=== PATIENT | male | born 1975 | race Caucasian/White ===

== ENCOUNTER 2016-08-28 09:37 | Inpatient (IN) | payer OTHER ==
[~2016-08-28] VITALS: Ht 172.7 cm; Wt 81.0 kg
--- NOTE | ~2016-08-28 | INDIVTXPLN ---
"PATIENT: DENYS VEGA W | | [facility] UNIT #: [id number] | [address] AGE/SEX: 41 M : 75 | [address] | [place] [address] ADMIT/REG DATE: 08/28/16 | ROOM: [facility] LOC: ADTC | ADTC | Individualized Treatment Plan Date: 04 SEPTEMBER 2016 Problem Statement/Issue Identified: DENYS RELAPSED THREE MONTHS AFTER HIS LAST TREATMENT EXPERIENCE (DISCHARGE JANUARY 2016). DENYS NEEDS TO BE WILLING TO FOLLOWTHROUGH WITH AFTERCARE RECOMMENDATIONS, SNF HOUSE, SPONSORSHIP AND 12 STEP MEETINGS/FELLOWSHIP. Goal: DENYS WILL BECOME WILLING TO BE MORE ACTIVE IN THE COMMUNITY,WILL OBTAIN A SPONSOR AND BE WILLING TO USE HIM ON A REGULAR BASIS. Objectives/Activities to achieve goal: 1. Denys will be willing to sign RELEASE to [employer] [facility] [employer] in [place]. Due Date: Complete: IncompleteL 2. Denys will complete GETTING STARTED packet identifying his thoughts and feelings about being back in treatment, a brief life history, & will identify personality characteristics when using vs. when clean. Denys will process his work and any insights gained with his primary counselor and selected pages in group. Due Date: Complete: Incomplete: 3. Denys will complete an honest and through STEP ONE identifying specific high risk behaviors, efforts to quit or control his use and 15 values he has compromised in his addiction. He will process his work and any insights gained with his primary counselor. Due Date: Complete: Incomplete: 4. Denys will attend all available 12-STEP MEETINGS available while he is in treatment. He will be willing to talk with and process some of the topics addressed with his primary counselor without compromising anyone's annominity . Due Date: Complete: Incomplete: 5. Denys will develop a list of characteristics that he will want to find in a temporary sponsor. Denys will ask a man with at least four years of clean time to be his temporary sponsor by the end of his second week of treatment. Due Date: Complete: Incomplete: 4. Denys will agree to lead 12 step meetings on the Unit and will discuss the topic chosen with his primary counsleor the next day. Due Date: Complete: Incomplete: Client signature Date Counselor signature Date PATIENT: DENYS VEGA W | | [facility] UNIT #: [id number] | [address] AGE/SEX: 41 M : 75 | [address] | [place] [address] ADMIT/REG DATE: 08/28/16 | ROOM: [facility] LOC: [facility] | ADTC | Individualized Treatment Plan Outcome/Measurement of Progress Towards Goal: Counselor's signature Date "
--- NOTE | ~2016-08-28 | CLPRLASSUM ---
"PATIENT: DENYS VEGA W | | [facility] UNIT #: [id number] | [address] AGE/SEX: 41 M : 75 | [address] | [place] [address] ADMIT/REG DATE: 08/28/16 | ROOM: [facility] LOC: ADTC | ADTC | Client Problem List/Assessment Summary Date: 04 SEPTEMBER 2016 Problems identified by the client: PRIMARY SUPPORT GROUP, SOCIAL, OCCUPATIONAL, HOUSING, FINANCIAL, LEGAL Problems identified by significant others: SAME ABOVE Client's Strengths as Identified by Client: FAMILY, FRIENDS (NON-USERS) Problem List: Kalee MCFARLANE RELAPSED SHORTLY AFTER HIS LAST TREATMENT EXPERIENCE. DENYS NEEDS TO MAKE A NON-CONDITIONAL COMMITTMENT TO FOLLOWTHROUGH WITH AFTERCARE RECOMMENDATIONS, LONG TERM HOUSE, AA/NA MEETINGS AND USING A SPONSOR. Kalee MCFARLANE HAS A HISTORY OF SUBSTANCE ABUSE THAT HAS NOW RESULTED IN [place] DRUG CHARGES AND DRUG COURT. HE NEEDS TO MAKE SIGNIFICANT CHANGES IN HIS LIFE AND GAIN AWARENESS OF POTENTIAL TRIGGERS THAT WOULD RESULT IN ANOTHER RELAPSE. Kalee MCFARLANE PROFESSES A BELIEF IN GOD BUT HAS TURNED TO DRUGS TO COPE WITH LIFE STRESSORS/DISAPPOINTMENTS. Kalee MCFARLANE EXPRESSES ASHAMED FEELINGS FOR THE WORRY HE HAS CAUSED HIS FAMILY MEMBERS BY HIS CHEMICAL USE. Code Levy: T: to be addressed during course of treatment O: problem noted, expected to resolve itself with abstinence--specific tx plan not required R: problem noted, will be referred upon discharge PRIMARY COUNSELOR: KRISTOPHER STOVALL [facility]"
--- NOTE | ~2016-08-28 | RESCARESUM ---
"PATIENT: DENYS VEGA | | [facility] UNIT #: [id number] | [address] AGE/SEX: 41 M : 75 | [address] | [place] [address] ADMIT/REG DATE: 08/28/16 | ROOM: [facility] LOC: ADTC | ADTC | Summary of Residential Care Primary Counselor: Kristopher Stovall LM,[facility] Date of Admission: 28 AUGUST 2016 Date of Discharge: 25 SEPTEMBER 2016 [address]: 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 Continued Obstacles to Sobriety/Relapse Issues: FAMILY ENABLERS, OLD USING FRIENDS/PLACES, STUFFING FEELINGS, PEOPLE PLEASING, FAILURE TO FOLLOW THROUGH WITH AFTERCARE RECOMMENDATIONS, NA MEETINGS/FELLOWSHIP AND WORKING WITH A SPONSOR. Family Issues Addressed: FAMILY DID ATTEND FAMILY SESSIONS; THEY ARE SUPPORTIVE BUT HAVE ENABLED IN THE PAST Y Individual Therapy Y Group Therapy Y Educational Series on Substance Abuse Y Parents/Significant Others Attended Family Program N Acute Medical Problems During the Course of Treatment N Transferred to Hospital During the Course of Treatment Y Accepting of Substance Abuse Problem Completed AA Step # 1 During This Level of Care Significant Incidences During Treatment: NONE Reason For Discharge: Y Completed Residential [place] Goals and Ready For Next Level of Care Continuing Care Plan/Recommendations: Y Sponsor Y AA Meetings/NA Meetings Y 1/[address] House MINIMUM OF 6 MONTHS PATIENT: DENYS VEGA | | [facility] UNIT #: [id number] | [address] AGE/SEX: 41 M : 75 | [address] | [place] [address] ADMIT/REG DATE: 08/28/16 | ROOM: [facility] LOC: ADTC | ADTC | Summary of Residential Care Specific Continuing Care Plan: CLIENT WILL RETURN TO [facility] TODAY AND WILL ENTER THE [facility] IN [place] BY 2 PM TOMORROW 09/26/2016. IT IS RECOMMENDED THAT HE RESIDES AT THE [facility] FOR A MINIMUM OF SIX MONTHS OR UNTIL DISCHARGED WITH STAFF APPROVAL. CLIENT WILL RECEIVE ONGOING TREATMENT BY THE STAFF AT THE [facility] IT IS FURTHER RECOMMENDED THAT CLIENT ATTEND A MINIMUM OF THREE NA/AA MEETINGS EACH WEEK AND HAS FACE TO FACE INTERACTION WITH HIS SPONSOR AT LEAST WEEKLY. CLIENT NEEDS TO FOLLOW ANY AND ALL AFTERCARE RECOMMENDATIONS FROM THE [facility] STAFF. PRIMARY COUNSELOR: KRISTOPHER STOVALL [facility]"
--- NOTE | ~2016-08-28 | INDIVTXPLN ---
"PATIENT: DENYS VEGA W | | [facility] UNIT #: [id number] | [address] AGE/SEX: 41 M : 75 | [address] | [place] [address] ADMIT/REG DATE: 08/28/16 | ROOM: [facility] LOC: ADTC | ADTC | Individualized Treatment Plan Date: 15 SEPTEMBER 2016 Problem Statement/Issue Identified: DENYS PROFESSES A BELIEF IN GOD BUT HAS TURNED TO ALCOHOL/DRUGS TO COPE WITH DISAPPOINTMENTS AND LIFE STRESSORS. Goal: DENYS WILL WORK ON BUILDING A STRONGER RELATIONSHIP WITH HIS HIGHER POWER BY ATTENDING ALL SPIRITUAL EDUCATION & SERVICES. Objectives/Activities to achieve goal: 1. Denys will complete the SPIRITUAL ASSESSMENT will process his work and any insights gained with his primary counselor. Due Date: Complete: Incomplete: 2. Denys will read and process LETTING GO OF THE NEED TO CONTROL highlighting thinking and behaviors from the examples provided in the text and that parallel his own thiknking and behavior patterns. He will process his work with his primary counselor. Due Date: Complete: Incomplete: Client signature Date Counselor signature Date Outcome/Measurement of Progress Towards Goal: Counselor's signature Date "
--- NOTE | ~2016-08-28 | INDIVTXPLN ---
"PATIENT: DNEYS VEGA W | | [facility] UNIT #: [id number] | [address] AGE/SEX: 41 M : 75 | [address] | [place] [address] ADMIT/REG DATE: 08/28/16 | [facility] | Individualized Treatment Plan Date: 15 SEPTEMBER 2016 Problem Statement/Issue Identified: DENYS IS ASHAMED FOR THE WORRY AND DISAPPOINTMENT HE HAS CAUSED HIS FAMILY MEMBERS DUE TO HIS CHEMICAL ABUSE. Goal: DENYS WILL IDENTIFY AND PROCESS THESE FEELINGS TO PROMORTE HEALING. Objectives/Activities to achieve goal: 1. Denys will write and process FEELINGS LETTERS to his mother and his sister. Due Date: Complete: Incomplete: Client signature Date Counselor signature Date Outcome/Measurement of Progress Towards Goal: Counselor's signature Date "
--- NOTE | ~2016-08-28 | INDIVTXPLN ---
"PATIENT: DENYS VEGA W | | [facility] UNIT #: [id number] | [address] AGE/SEX: 41 M : 75 | [address] | [place] [address] ADMIT/REG DATE: 08/28/16 | ROOM: [facility] LOC: ADTC | ADTC | Individualized Treatment Plan Date: 15 SEPTEMBER 2016 Problem Statement/Issue Identified: DENYS HAS A HISTORY OF SUBSTANCE ABU SE THAT HAS NOW RESULTED IN [place] DR MELVI CHARGES AND DRUG COURT. HE NEEDS TO MAKE SIGNIFICANT CHANGES IN HIS LIFE, BE WILLING TO FOLLOWTHROUGH WITH AFTERCARE RECOMMENDATIONS, AA/NA FELLOWSHIP/SPONSORSHIP, AND BECOME AWARE OF POTENTIAL RELAPSE TRIGGERS. Goal: DENYS WILL BECOME AWARE OF POTENTIAL RELAPSE TRIGGERS/ISSUES AND DEVELOP A PLAN TO DEAL WITH THEM EFFECTIVELY THEY ARISE. Objectives/Activities to achieve goal: 1. Denys will complete MY CHANGE PLAN identifying changes in people, places and things that he is willing to change to inprove the odds of correction sobriety. He will process his work with his primary counselor and select pages with his peer group. Due Date: Complete: Incomplete: 2. Denys will complete RELAPSE PREVENTION packet identifying previous downward spirial that led to relapse and identify any new potential triggers/issues that could trip him up again. He will discuss these with his primary counselor and be open to feedback. Due Date: Complete: Incomplete: Client signature Date Counselor signature Date Outcome/Measurement of Progress Towards Goal: Counselor's signature Date "
--- NOTE | ~2016-08-28 | TXPLANREV ---
"PATIENT: DENYS VEGA | | [facility] UNIT #: [id number] | [address] AGE/SEX: 41 M : 75 | [address] | [place] [address] ADMIT/REG DATE: 08/28/16 | ROOM: [facility] LOC: ADTC | ADTC | Treatment Plan/Staffing Review Date: 18 SEPTEMBER 2016 Treatment plan was reviewed and determined appropriate as written: Treatment plan was reviewed and the following changes/additions/deletions are necessary: Discharge plans were reviewed and determined appropriate as previously documented: Discharge plans were reviewed and determined to be as follows: Other pertinent issues discussed du ring this staffing review include: Staff Present: PRIMARY COUNSELOR: Client Signature: Counselor Signature Date Time "
--- NOTE | ~2016-08-28 | TXPLANREV ---
"PATIENT: DENYS VEGA | | [facility] UNIT #: [id number] | [address] AGE/SEX: 41 M : 75 | [address] | [place] [address] ADMIT/REG DATE: 08/28/16 | ROOM: [facility] LOC: ADTC | ADTC | Treatment Plan/Staffing Review Date: 18 SEPTEMBER 2016 Treatment plan was reviewed and determined appropriate as written: YES, TREATMENT PLAN IS APPROPRIATE WRITTEN. Treatment plan was reviewed and the following changes/addition/deletions are necessary: ADDITIONAL TX PLAN WRITTEN TO ADDRESS FEELINGS. Discharge plans were reviewed and determined appropriate as previously documented: DISCHARGE PLANS ARE APPROPRIATE PREVIOUSLY DOCUMENTED. Discharge plans were reviewed and determined to be as follows: TENTATIVE DISCHARGE DATE IS 25 SEPTEMBER 2016. CLIENT HAS BEEN ACCEPTED AT THE [facility] IN [place]. Other pertinent issues discussed during this staffing review include: CLIENT HAS MADE GOOD PROGRESS ON HIS TREATMENT PLAN OBJECTIVES. HIS MOTHER PARTICIPATED IN ALL ASPECTS OF FAMILY EDUCATION AND IS SUPPORTIVE. CLIENT HAS BEEN COMPLIANT WITH UNIT GUIDELINES AND SERVES A GOOD ROLE MODEL. CLIENT DOES STRUGGLE WITH IDENTIFYING AND ALLOWING HIMSELF TO FEEL HIS FEELINGS. HE HAS BEEN ASSIGNED WORK TO ADDRESS THIS ISSUE. Staff Present: MARLENY HUGGINS PRIMARY COUNSELOR: KRISTOPHER STOVALL [facility] Client Signature Counselor Signature Date Time "
--- NOTE | ~2016-08-28 | TXPLANREV ---
"PATIENT: DENYS VEGA | | [facility] UNIT #: [id number] | [address] AGE/SEX: 41 M : 75 | [address] | [place] [address] ADMIT/REG DATE: 08/28/16 | ROOM: [facility] LOC: ADTC | ADTC | Treatment Plan/Staffing Review Date: 11 SEPTEMBER 2016 Treatment plan was reviewed and determined appropriate as written: TREATMENT PLAN IS APPROPRIATE WRITTEN. Treatment plan was reviewed and the following changes/addition/deletions are necessary: ADDITIONAL TX PLANS WERE CREATED TO ADDRESS FEELINGS LETTERS & SPIRITUALITY. Discharge plans were reviewed and determined appropriate as previously documented: NO DISCHARGE PLANS WERE DOCUMENTED PREVIOUSLY. Discharge plans were reviewed and determined to be as follows: CLIENT HAS BEEN ACCEPTED AT THE [facility] IN [place]. HIS TENTATIVE DISCHARGE DATE IS 08/28/16. Other pertinent issues discussed during this staffing review include: CLIENT CONTINUES TO VERBALIZE COMMITMENT TO HIS RECOVERY. HIS MOTHER HAS ATTENDED THE FAMILY EDUCATION AND FAMILY GROUP. SHE WILL RETURN 09/15 WHEN SHE AND CLIENT WILL PROCESS FEELINGS LETTERS. CLIENT IS WORKING ON STEP ONE AND CHARLES THINKIN. Staff Present: ROSENDO HAND PRIMARY COUNSELOR: KRISTOPHER STOVALL [facility] Client Signature Counselor Signature Date Time "
--- NOTE | 2016-08-28 11:30 | NUR ---
Group 1.5hr/ 11:1 Clients all were attentive as peers shared GS packets and some shared how they relate. This client did give feedback and relate.
--- NOTE | 2016-08-28 15:39 | NUR ---
ADMISSION NOTE Client is a 41 y/o single male referred to treatment by the court and brought here today by his mother from alf, where he had been for 55 days. Client states NKMA and brings no medications with him today. 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 Client resides in [place] with his mother and anticipates that she will come to family group. Client was searched, no contraband found. Rights/Responsibilities: Copy given and explained to client. Signed and accepted by client. Client oriented to physical lay out of the ADTC unit, given Big Book and admission packet. A Fernandez was assigned. Vel
--- NOTE | 2016-08-28 16:37 | NUR ---
Education: 1hr Participated in Step 2 work group. Very involved in the group discussion.
--- NOTE | 2016-08-28 16:38 | NUR ---
Education: 1hr Participated in Step 2 work group. Very involved in the group discussion.
--- NOTE | 2016-08-28 17:06 | NUR ---
INDIVIDUAL SESSION 1 HR: Met with client and ORIENTED HIM TO TREATMENT GUIDELINES, GOALS AND OBJECTIVES. Client explained that he is in Drug Court since treatment last year at [facility]. Client said he was clean and sober 90 days then relapsed. Meth is DOC. Client's mother will participate. Client said he needs to go to a [facility] and I agreed with him. Client is to work on GETTING STARTED pkt and was given CHARLES THINKIN. He signed INITIAL TREATMENT PLAN. sESSION 09/01
--- NOTE | 2016-08-28 17:08 | NUR ---
FAMILY CONTACT: Mom will be involved in client's treatment. Encouraged her to wait another week to attend.
--- NOTE | 2016-08-28 23:04 | NUR ---
Tech Note: Client participated in rec and attended A.A.Meeting.
--- NOTE | 2016-08-28 23:21 | NUR ---
Education Note: Client watched the healthy families video which lasted an hour.
--- NOTE | 2016-08-29 04:40 | NUR ---
Bed note: Client was in bed with eyes closed and no distress at all bed checks
--- NOTE | 2016-08-29 11:30 | NUR ---
Group 1.5hr/ 11:1 Clients all were attentive as peers shared GS packets and some shared how they relate. This client did get oriented to group rules and did share some about himself.
--- NOTE | 2016-08-29 14:39 | NUR ---
PEER REVIEWS 1 HR: Clt participated in peer review process and was able to give open and honest feedback to those receiving a review.
--- NOTE | 2016-08-29 14:50 | NUR ---
PEER REVIEWS 1 HR: Clt participated in peer review process and was able to give open and honest feedback to those receiving a review.
--- NOTE | 2016-08-29 16:25 | NUR ---
Tech Note: Client watched a video "How to Sabotage Your Treatment" and is working on Getting Started and Derrek Donald.
--- NOTE | 2016-08-29 23:47 | NUR ---
TECH NOTE: Client participated in guideline reading, watched tv/movies. SE: group
--- NOTE | 2016-08-30 04:47 | NUR ---
BED NOTE: Client was in bed, motionless with eyes closed all three bed checks.
--- NOTE | 2016-08-30 12:18 | NUR ---
PEER REVIEWS 1 HR: Clt participated in peer review process and was able to give open and honest feedback to those receiving a review.
--- NOTE | 2016-08-30 16:16 | NUR ---
Tech Note: Client went to AA mtg at [facility] and [facility]. Is working on Getting Started and Derrek Thinkin.
--- NOTE | 2016-08-30 20:03 | NUR ---
TECH NOTE: Client played Catch Phrase for REC, attended off site AA meeting, watched TV/movies. SE: all day
--- NOTE | 2016-08-31 04:48 | NUR ---
Bed Note: Clt lay motionless in bed with eyes closed showing no distress at all bed checks.
--- NOTE | 2016-08-31 15:58 | NUR ---
Tech Note: Client participated in Big Book Study. Client stated that he is working on, "How to Get Started in Treatment."
--- NOTE | 2016-08-31 22:52 | NUR ---
TECH NOTE: Client attended AA panel, participated in community clean and watched tv/movies. SE: aa panel
--- NOTE | 2016-09-01 04:24 | NUR ---
Bed Note: Clt lay motionless in bed with eyes closed showing no distress at all bed checks.
--- NOTE | 2016-09-01 10:16 | NUR ---
Tech notes: Client is working on BB
--- NOTE | 2016-09-01 11:30 | NUR ---
Morning Group, 07/16 ratio, 1.0 hours, Client attended and actively participated in group therapy. Client listened to others who shared.
--- NOTE | 2016-09-01 12:42 | NUR ---
Education Note: Client attended educational speaker Kit on Crossadd[employer].
--- NOTE | 2016-09-01 14:28 | NUR ---
FAMILY CONTACT: Able to reach client's mom. She will be here 09/04 for a FAMILY SESSION & FAMILY EDUCATION again.
--- NOTE | 2016-09-01 16:00 | NUR ---
RECOVERY 101 1 HR/ Clients all brought big books, were given highlighters and shown tools they can use in the big Book on: acceptance, 1/2measures, 12 promises, living in the solution-not the problem, resentments, 2 week prayer to forgiveness, etc. Clients took turns reading and some commented and asked questions.
--- NOTE | 2016-09-01 20:34 | NUR ---
Education: 1 hour lecture on feelings given by counselor
--- NOTE | 2016-09-01 23:43 | NUR ---
Tech Note: Client played a game for rec, and attended N.A.Meeting. SE: Group
--- NOTE | 2016-09-02 04:01 | NUR ---
bed note: client was in bed with eyes closed and no distress at all bed checks.
--- NOTE | 2016-09-02 14:09 | NUR ---
INDIVIDUAL SESSION 1 HR: Continue to review client's BPS. Client talks incessantly (canned dialogue, i.e. "I know." responses) and often doesn't seem to think through his comments. Staff challanged him several times today when he responded, "I know." I asked client, "What do you know. What does that mean to you." He admitted that he didn't know, tho he has been in previous treatment, so should have some understanding of some basic concepts. Client professes his intent that this will be a different outcome than his past treatment as he admits that he did little or nothing to build a foundation in his recovery. I encouraged client to have a temporary sponsor by the first of the week. Client has been around meetings long enough that he should have an idea of individuals who have some jail recovery and come to a lot of meetings. He processed some of his GETTING STARTED IN TREATMENT packet and we read though his SIGNIFICANT EVENT FORMS which were very repitive. Client was encouraged to "dig deeper" into his feelings. Pages were marked for him to process in group and he was assigned STEP ONE & LETTING GO OF THE NEED TO CONTROL. 09/04
--- NOTE | 2016-09-02 15:00 | NUR ---
BIG GRP 5:21/ We had a big grp to confront sleeping pills being on the unit, dishonesties, and anything else going on that needed to be addressed. Clt denied knowing someone had brought anything on the unit. He sat mostly quiet, and offered little feedback.
--- NOTE | 2016-09-02 15:15 | NUR ---
Education Note: Client heard a presentation on, "Grief."
--- NOTE | 2016-09-02 15:25 | NUR ---
Tech Note: Client particiapted in light stretching for morning exercise and walked in the halls in the afternoon. Client stated that he is working on, "Derrek' Thinkin" and reading the Big Book.
--- NOTE | 2016-09-03 00:06 | NUR ---
Education: 1 hour lecture given by Counselor on Step 1
--- NOTE | 2016-09-03 00:18 | NUR ---
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
--- NOTE | 2016-09-03 04:16 | NUR ---
Bed Note: Clt lay motionless in bed with eyes closed showing no distress at all bed checks.
--- NOTE | 2016-09-03 10:02 | HP ---
ADMIT: 08/28/2016 RM/LOC: [facility] MR#: [id number] [address] [facility] [address] [place] [id number] DENYS STRONG [address] [place] [address] History and Physical SEX: M AGE: 41 : 1975 DATE OF SERVICE: This is for his admission to the residential care program at the [facility]. CHIEF COMPLAINT: Drug problem, meth addiction, recent relapse. CLINICAL HISTORY: Mr. Strong is a 41-year-old, white male, readmitted to the residential care program for treatment of his methamphetamine/stimulant use disorder. The patient comes to treatment after having spent the past 2 months in group home. The patient missed a court date and a warrant was placed for his arrest. He missed his court date in June because he was high, he had relapse, and was using again. Subsequently, he has been confined to group home for the past 2 months. He has been in group home since 07/02/2016 until his admission here today on 08/28/2016 from group home. The patient previously had gone through treatment here at the [facility], being admitted on 12/19/2015, and completing treatment on 01/16/2016. He then went to the [facility], where he resided for approximately 3 months. He was clean and sober for about 3 months following treatments until relapsing in mid April. When he relapsed, he was kicked out of the [facility] and was living on the streets, going from drug house to drug house or sleeping on friend's sofas until he was arrested in late June and placed in group home. The patient notes that when he relapsed, he started using at the same amount he had prior to his last treatment, he was using 1 g to 2 g a day depending on how much he could get and how much he could afford. When he relapsed, he went right back to his same level of use. Smoking as noted 1 to 2 g per day. The patient notes that meth is his drug of choice and is the only drug he uses. He first started using meth at age 25 and has been using on a regular basis for the last 16 years. He notes an average day is anywhere from a 0.5 g up to 1.5 g. He either smokes it, snorts it, or eats it. He denies any IV use. He notes he has had significant legal issues and has just got out of group home, charges are still pending on a DUI, possession of meth, and possession of drug paraphernalia. He notes that he has also had significant financial problems and employment problem because of his drug use. He notes while he was at the [facility] had been working, but when he relapsed, he lost that job. He recognizes that he needs help if he is going to get clean and stay clean. He comes to treatment after that two month confinement in group home. He recognizes the need to go to a [facility] at this time upon completion of treatment. As noted, his only drug used is meth. He denies any use of alcohol or pot. He notes he tried pot only once and did not like it. He has not drank since he was in his early 20s. Once he started using meth, he has had no desire for alcohol. He denies any abuse of prescription drugs. He notes that meth is his problem. Admitted at this time as noted for treatment of his methamphetamine use disorder. PAST MEDICAL HISTORY: Previous hospitalizations: As noted he was here in residential treatment from 12/19/2015 through 01/16/2016. He has otherwise had no other treatment and no other hospitalizations. PREVIOUS OPERATIONS: None. ADMIT: 08/28/2016 RM/LOC: [facility] MR#: [id number] [address] [place] [address] [place] [phone] DENYS STRONG [address] [place] [address] [facility] [place] [address] History and Physical SEX: M AGE: 41 : 1975 CURRENT MEDICATIONS: He notes he has a history of high cholesterol and has taken simvastatin off and on for several years. This was usually prescribed by Dr. Emanuel Lehman. He notes for the two months that he has been in group home, he did not receive his simvastatin. He also notes that he was not taking it regularly once he relapsed. He is on no other medications. ALLERGIES: NONE KNOWN. MEDICAL ILLNESSES: The patient has a history of hyperlipidemia, has history of tobacco use disorder. Other than for those two issues, his only other problem is his chronic periodontal disease with numerous carious and broken teeth and chronic gingivitis. He denies any other significant medical problems. REVIEW OF SYSTEMS: A 12-point review of systems is otherwise negative with no other significant cardiac, pulmonary, GI, , musculoskeletal, or neurologic complaints. SOCIAL HISTORY: The patient is noted to be a smoker. He admits that he is a drug addict. He uses both cigarettes as well as chewing tobacco. Notes that he typically smokes less than half a pack a day, but does go through about 3 cans of chew per week. The patient notes that he is single, currently homeless. Prior to his last treatment, he had been staying with his mother. He notes he has no children and has never had any long-term relationships. FAMILY HISTORY: He notes his parents when he was age 5. He was raised primarily by his mother. He has two younger sisters. As far as he knows in his immediate family, there is no one else with a chemical dependency issue. He notes that he knows very little about his father or his father side of the family. He notes on his mother side of the family, there are several cousins who were also addicts. Remainder of his family history is negative. PHYSICAL EXAMINATION: VITAL SIGNS: Height is 5 feet 8 inches, weight is 178 pounds, temp 98.6, pulse 69, respirations 18, and blood pressure 135/84. GENERAL: The patient is a 41-year-old white male, who appears his stated age. He is in no acute distress. Oriented x3. HEENT: Unremarkable. His dentition is in poor repair. Chronic periodontal disease with gingivitis and numerous carious and broken teeth. No oral lesions. NECK: Supple. Thyroid not enlarged. No neck vein distention. LUNGS: Noted to be clear to both auscultation and percussion. HEART: Regular rhythm without murmur. ABDOMEN: Soft, somewhat obese. Nontender. No masses. No organomegaly. No hernias. Bowel sounds are normoactive. GENITALIA: Normal male. Bilaterally descended testes. No hernias. EXTREMITIES: Normal to gross exam. No clubbing or cyanosis. No peripheral edema. NEUROLOGIC: He is intact with no focal deficit. Balance and gait are normal. ADMIT: 08/28/2016 RM/LOC: [facility] MR#: [id number] [address] [place] [id number] [place] [address] History and Physical SEX: M AGE: 41 : 1975 Cranial nerves II through XII are grossly intact. MENTAL STATUS EXAMINATION: He is pleasant, cooperative. Affect is appropriate. He has no bizarre ideation. No delusions. No significant depressive symptoms at this time. He denies any suicidal ideation. He is oriented x3. He appears to be of average intelligence, however, his insight is limited. Judgment is guarded. ASSESSMENT AT THE TIME OF ADMISSION: 1. Methamphetamine/stimulant use disorder, severe. 2. Tobacco use disorder. 3. Hyperlipidemia. PLAN: Plan is to admit the patient to the residential care program with a tentative discharge date of 09/25/2016. Upon completion of treatment, the patient wants to go to a [facility]. He would like to get into the [facility] here in [place]. He recognizes the importance of a supportive structured environment to help him maintain his long-term sobriety. The patient would like to go to the [facility] upon completion of treatment and follow through with their aftercare program. Neel Stephen MD/ anabella JOB #: [id number] CC: Neel Stephen MD, Attending Physician FAMILY PHYSICIAN, Family Physician
--- NOTE | 2016-09-03 10:28 | NUR ---
Tech Notes: Client is working on BB
--- NOTE | 2016-09-03 12:37 | NUR ---
AM GROUP 11:1/1.5 HR: Client and peers helped to ORIENT NEW PEER TO GROUP GUIDELINES, GOALS AND PURPOSE. Client and peers heard several group members process assignments. Many of the examples given focused on neglect of their children and various clients related to this and shared personal feedback. This client was mostly quiet but attentive. He did ask to share that his cousin had committed suicide due to drugs. Client said his 19 y/o cousin hung himself.
--- NOTE | 2016-09-03 13:26 | NUR ---
Education note: Client attended education by [facility]
--- NOTE | 2016-09-03 17:54 | NUR ---
SPIRITUAL EDUCATION 1 HR. Today we discussed ways to quiet the mind and meditation and creativity.
--- NOTE | 2016-09-03 23:01 | NUR ---
tech note: Client played a game for recreation & attended onsite NA meeting. SE: Group.
--- NOTE | 2016-09-04 02:18 | NUR ---
Education: 1 Hour. Client attended "Unresolved Anger" video & discussion presented by staff.
--- NOTE | 2016-09-04 04:59 | NUR ---
BED NOTE: Client was in bed motionless with eyes closed all three bed checks.
--- NOTE | 2016-09-04 11:18 | NUR ---
Tech Note: Client participated in Spiritual Enrichment. Client stated that he is reading the Big Book.
--- NOTE | 2016-09-04 11:28 | NUR ---
Group 1.5hours 1:11 Clients shared assignments from their Getting Started packet and feelings letters. Client was quiet most of group but offered feedback to his peers. Student: Chris Monreal
--- NOTE | 2016-09-04 14:00 | NUR ---
FAMILY SESSION 1 HR: Client attended with his mother. Almost from the beginning of the session, client's mother prodded him about things he needs to do, hasn't done in the past, behavior patterns etc. It seemed very shaming. When I informed mom that client has willingly signed releases to [facility] in [place], she started to discourage him from considering [facility] as an option. I explained to mom that client getting away from GI/old using friends (mom?) might be a real positive thing and client echoed this. She did "seem" to reconsider but then when we went over his PROBLEMS/NEEDS LIST, TREATMENT PLAN GOALS AND OBJECTIVES, she started telling him that he needs to ask his cousin (former officer & former employer) to be his sponsor, she was very insistant and continued to argue in cousin's favor even when client said he had already asked someone else (known to us). Client seemed to be very respectful to his mom, but it appears that he needs to take a stronger stance against her. She seemed to be talking to a 15 y/o. I did encourage her to go back to [facility] and suggested that expressing our feelings is important, but repeating these concerns over and over again becomes nagging and controlling. She acquised, but I don't think she agrees. Will need to figure out how to address this with client. Additional copies were made of his Tx Plan for his journal. Client assigned NA version STEP ONE.
--- NOTE | 2016-09-04 16:46 | NUR ---
FAMILY EDUCATION 3 HRS. Client was accompanied by his mom. They took part in the discussion on the disease concept. Client shared chemical history and the consequences. Mom is encouraged to return to [facility].
--- NOTE | 2016-09-04 20:21 | NUR ---
Education 1HR: Clt watched video by Mejia Arenas on Step 5.
--- NOTE | 2016-09-04 22:33 | NUR ---
TECH NOTE: Client played Catch Phrase for REC, participated in Guided Meditation and attended onsite AA meeting. SE: group
--- NOTE | 2016-09-05 04:26 | NUR ---
Bed Note: Clt lay motionless in bed with eyes closed showing no distress at last two bed checks. The first bed check clt looked at tech.
--- NOTE | 2016-09-05 12:52 | NUR ---
GROUP 1.5 HR/ 12:1 Client did share his GS packet and did good job, received feedback and some related. He tends to like to tell over and over his sisters jobs that are impressive, he did share he needs to [facility] for more structure as last time did recovery his way and relapsed.
--- NOTE | 2016-09-05 13:00 | NUR ---
PEER REVIEWS 1.25 HRS: Clt participated in peer reviews and took a risk to give open and honest feedback to those receiving a review.
--- NOTE | 2016-09-05 15:44 | NUR ---
Tech Note: Client watched a video "It Can't Happen To Me" and is working on Step 1 and the Big Book.
--- NOTE | 2016-09-05 22:29 | NUR ---
Tech note : Client watched tv, played games. SE; All day
--- NOTE | 2016-09-05 22:30 | NUR ---
Tech note : Client watched tv, played games. SE; All day
--- NOTE | 2016-09-06 05:00 | NUR ---
Bed note: Client was in bed with eyes closed and no distress at all bed checks.
--- NOTE | 2016-09-06 15:12 | NUR ---
Tech Note: Client attended N.A.Panel and is working on Step 1 and big book
--- NOTE | 2016-09-06 20:36 | NUR ---
tech note: client played game for recreation & attended offsite AA meeting. Client watched tv. SE: Nap.
--- NOTE | 2016-09-07 15:44 | NUR ---
Tech Note: Client is working on Step1 and big book. He attended christian.
--- NOTE | 2016-09-07 22:15 | NUR ---
Tech note: Participated in community clean, attended AA panel with Varghese Rosen
--- NOTE | 2016-09-08 04:58 | NUR ---
Bed note: Client was in bed with eyes closed and no distress at all bed checks.
--- NOTE | 2016-09-08 11:30 | NUR ---
Experiential Group 1.5hr/ Clients all participated in Family Sculpturing by role-playing, relating and giving feedback. This client was involved and attentive.
--- NOTE | 2016-09-08 13:26 | NUR ---
Education note: Client attended education speaker Gracie on Tobacco.
--- NOTE | 2016-09-08 14:17 | NUR ---
Tech Note: client is working on Step 1
--- NOTE | 2016-09-08 18:03 | NUR ---
Education: 1 Hour. Client attended "Forgiveness" lecture presented by staff.
--- NOTE | 2016-09-08 21:00 | NUR ---
FAMILY GROUP 6:1 HR: Client, peers and attending family members heard one young female IOP client process FEELINGS LETTERS to each of her parents. The letters were well written and appeared to be sincere. Several peers related and shared specifics from their own experience. Client attended with his mom and there was another mom in attendence that offered thier experience and support. Client was mostly quiet, but admitted that he has not been there to support his family or sibblings like he hopes to be in his recovery. He and mom will process FEELINGS LETTERS next Thursday.
--- NOTE | 2016-09-08 23:08 | NUR ---
tech note: client played a game for recreation & attended onsite NA meeting. SE: Family.
--- NOTE | 2016-09-08 23:24 | NUR ---
tech note: client attended Family Session. SE: Family.
--- NOTE | 2016-09-09 04:33 | NUR ---
tech note: client was motinless in no distress at all bed checks.
--- NOTE | 2016-09-09 12:24 | NUR ---
AM GROUP 11:1/.5 HR: Client and peers heard several process assignments and issues. Most clients related in some manner and were quick to offer personal experience and feedback. This client was mostly quiet but did share from some personal experiences of thinking and reactions when he was in active addiction.
--- NOTE | 2016-09-09 14:00 | NUR ---
FAMILY EDUCATION 3 HRS Client attended family group with his mother. Client's mother shared a reading from Courage to Change and became very emotional. Client's mother shared that she would be coming back next week.
--- NOTE | 2016-09-09 15:35 | NUR ---
Tech Note: Client attended programming on Relapse Prevention and is working on Step 1 and the Big Book.
--- NOTE | 2016-09-09 16:00 | NUR ---
INDIVIDUAL SESSION 1 HR: Client still working on his NA STEP ONE so he did some processing from CHARLES [employer]. Client was able to recognize Lip Service, Corner Cutting and Electra. He provided some good examples and often referred to his mom or things she would confront him on. Based on my observations in recent family session, I asked client if he ever feels like his mom talks down to him as though he were a teenager rather than a grown man. Client acknowledged this but does not take offense he assured me. 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 Client said, "That's the same way she talks to her older brother and he is retired from the [employer]!!" We made calls to [facility] and they will screen him tomorrow after lunch. Client said he is leaning toward [place] because he thinks it would help him to distance himself from old using friends. Client verbalizes commitment.
--- NOTE | 2016-09-09 16:27 | NUR ---
Relapse Prevention, 07/28 ration, 1.0 hours, Client attended and participated in relapse prevention education which focused on relapse triggers/issues.
--- NOTE | 2016-09-09 22:19 | NUR ---
TECH NOTE: Client attended Alumni meeting and on-site AA meeting. SE: all day
--- NOTE | 2016-09-09 22:55 | NUR ---
EDUCATION NOTE: 1HR lecture on Shame given by counselor
--- NOTE | 2016-09-10 04:41 | NUR ---
Bed note: Client was in bed with eyes closed and no distress at all bed checks.
--- NOTE | 2016-09-10 09:15 | NUR ---
DISCHARGE PLANNING: Client will Screen today with [facility].
--- NOTE | 2016-09-10 09:16 | NUR ---
DRUG COURT CONTACT: TAlked with Anthony Bales from [facility] in [place]. Explained that client will screen today with [facility] and is leaning that direction. Nii was montiel pportive of this stating that they would likely transfer him to DC out of [place] so that it would be easier for client to get to DC meetings. He also was favorable to client discharging a few days early if needed to get a bed.
--- NOTE | 2016-09-10 10:04 | NUR ---
Tech note: Client is working on Fl's and change plan. Phone screening at 2:00
--- NOTE | 2016-09-10 12:00 | NUR ---
AM GROUP .5 HR: Client and peers helped to ORIENT TWO NEW CLIENTS TO GROUP GUIDELINES, GOALS AND OBJECTIVES. Several clients had assignments to process. This generated a lot of feedback and different individuals sharing from their own experience. Various examples of behaviors and values compromised were addressed with much of the focus on values compromised, how kids become the innocent victims of this disease and how painful but necessary it is to have to look at the reality of those consequences. Client processed insights gained from [employer], focusing mostly on corner-cutting, lip-service and procrastination. He was able to relate to values compromised as well.
--- NOTE | 2016-09-10 12:45 | NUR ---
Education note: Client attended speaker Bryan Agosto
--- NOTE | 2016-09-10 16:04 | NUR ---
SPIRITUAL EDUCATION 1 HR. Topic today was on how addiction is a disease of body mind and spirit and how the Steps fit in treating the SPIRIT. We also talked about ways to spirituality, payoffs, and how spirituality is related to both addiction and recovery.
--- NOTE | 2016-09-10 18:16 | NUR ---
Education: 1 Hour. Client attended "Boundaries" lecture presented by staff.
--- NOTE | 2016-09-10 22:10 | NUR ---
Tech note : Client played pictionary for rec and attended an onsite NA meeting. SE: NA meeting
--- NOTE | 2016-09-11 05:18 | NUR ---
tech note: client was motionless in no distress at all bed checks.
--- NOTE | 2016-09-11 11:30 | NUR ---
AM GRP 1.5 HRS, Ratio 1:11/ Clt sat mostly quiet, offering little feedback, but when prompted, stated he has [facility], but has a lot of fear about going. He heard fear can be a great motivator, and he was able to give several positive reasons to go.
--- NOTE | 2016-09-11 15:44 | NUR ---
Tech Note: Client participated in Spiritual Enrichment in the morning and went for an outdoor walk in the afternoon. Client stated that he is working on writing Feelings Letters and rading the Big Book.
--- NOTE | 2016-09-11 15:58 | NUR ---
step education/1 hr/ Focus was on step 6 and looking at character defects. Each person shared some questions and answers and identified what character defects they are ready to let go of and what ones they are not willing to let go of. This client participated.
--- NOTE | 2016-09-11 16:33 | NUR ---
Education 1 Hour: Client heard a presentaion on "Wellness in Recovery."
--- NOTE | 2016-09-11 17:24 | NUR ---
INDIVIDUAL SESSION 1 HR: Client processed part of STEP ONE but heard that he needs to get more specific with his examples. We did talk about his Significant Event forms and his avoidance of FEELINGS. Client admitted that he was often teased by peers in grade school, etc. Client named one peer in particular and was asked to write an ANGER letter to that individual. Client was a little resistant but hopefully it will help him get in touch. He refers to "putting them on the back burner" rather than "stuffing feelings." Client is working on FEELINGS LETTERS & finishing STEP ONE as well.
--- NOTE | 2016-09-11 23:04 | NUR ---
Tech note: Client worked on craft projects for the [employer] for rec and attended AA meeting SE:all day
--- NOTE | 2016-09-12 00:09 | NUR ---
Education note: Clients watched a movie on "my attitude' by Perfecto Mcmanus.
--- NOTE | 2016-09-12 04:53 | NUR ---
Bed note; client was motionlees, with eyes closed at all bed checks.
--- NOTE | 2016-09-12 12:14 | NUR ---
Group 1.5 Hr Ratio 1:12/Topics today were a change plan, resentment packet and a getting started. One new peer was orientated to group rules and goals. Client shared how he could relate to what peers were sharing.
--- NOTE | 2016-09-12 13:57 | NUR ---
PEER REVIEWS 1.25 HRS: Clt participated in peer reviews and took a risk to give open and honest feedback to those receiving a review.
--- NOTE | 2016-09-12 16:10 | NUR ---
Tech Note: Client went with group for outside walk and watched "Marijuana", by Yahir Mcmanus, for education. Clt is working on Feelings Letters, Step 1 and the Big Book.
--- NOTE | 2016-09-12 23:43 | NUR ---
Tech Note: Client read guidelines with peers. Client watched tv. SE: Group
--- NOTE | 2016-09-13 05:31 | NUR ---
Bed Note: Client was motionless with eyes closed at all bed checks.
--- NOTE | 2016-09-13 15:42 | NUR ---
Tech Note: Client working on Change Plan, Feelings Letters and the Big Book.
--- NOTE | 2016-09-13 20:29 | NUR ---
Tech Note: Client played a game for rec. They also attended the [facility]. SE: Mery
--- NOTE | 2016-09-14 05:28 | NUR ---
Bed Note: Client was motionless with eyes closed at all bed checks.
--- NOTE | 2016-09-14 15:21 | NUR ---
Tech Note: Client participated in Big Book Study. Client attended sikhism.
--- NOTE | 2016-09-14 23:31 | NUR ---
Client attended A.A.Panel and helped with community clean. SE: M[place]
--- NOTE | 2016-09-15 05:02 | NUR ---
Bed Note: Client was motionless with eyes closed at all bed checks.
--- NOTE | 2016-09-15 10:09 | NUR ---
Tech note: Client is working on Fl's and mtg with thomas
--- NOTE | 2016-09-15 11:30 | NUR ---
AM GRP 1.5 HRS, Ratio 1:11/ Clt participated in grp discussion on various topics. He stated he got [facility], and is nervous about going, but excited to go somewhere new and start over. He heard there's good recovery in [place], which helps, he stated.
--- NOTE | 2016-09-15 14:37 | NUR ---
Education note: Client attended speaker for education Daniel Garcia
--- NOTE | 2016-09-15 16:00 | NUR ---
RECOVERY 101 1 HR/ Clients all filled out list of 30 consequences from their use to help look at how each addictive chemical they ever used has caused problems and how minimizing can sabotage treatment. Discussed this and also learned about phases of recovery process from Denial to Acceptance & Surrender.
--- NOTE | 2016-09-15 16:00 | NUR ---
FAMILY SESSION 1 HR: Met with client and his mom. Mom almost immediately started asking questions about [facility], [facility], the Drug learning and development officer, Anthony Bales, client's deputy attorney general, etc. Staff attempted to respond to some of the questions but it seems that mom fails to understand that DC officer, Nii, has a lot of clients and is likely pulled in various directions. I explained that I had talked to Nii yesterday to confirm that client has been accepted at [facility] and is to go there once he has completed tx here. I confirmed that client has completed his paperwork for DC which will be faxed tomorrow morning. Mom was questioning that client would have enough supervision to stay on the straight and narrow. Staff suggested that client will have more structure and accountability there than he would have on probation or living on his own, but that it he wants to use, he will do that. I also s uggested that she call the deputy attorney general and talk with him about the steps to come. They will both attend Family Group dean.
--- NOTE | 2016-09-15 17:30 | NUR ---
DISCHARGE PLANNING: Notified Problem Solving Court/Anthony Bales that client has been accepted at [facility].
--- NOTE | 2016-09-15 20:43 | NUR ---
FAMILY GROUP 4:07/07 HR: Client, peers and attending family members heard two clients and their loved ones process FEELINGS LETTRS. The theme "rebuilding trust" surfaced time and again as individuals shared their letters. This client attended with his mother. His mom shared a beautiful and powerful letter, first describing her son as the human being she has known him to be through the years from childhood to his adult years. She then described the person he became when he started abusing chemicals with most drastic differences being after he started using meth. It was a letter everyone in the group could relate to. Peers and other family members shared from their own experience.
--- NOTE | 2016-09-15 22:39 | NUR ---
TECH NOTE: Client participated in family SE: family
--- NOTE | 2016-09-15 23:57 | NUR ---
Education: 1 Hour. Client attended "Adult Children" presentation given by staff.
--- NOTE | 2016-09-16 05:22 | NUR ---
BED NOTE: Client was in bed, motionless with eyes closed all three bed checks.
--- NOTE | 2016-09-16 11:30 | NUR ---
GROUP 1.5 HRS. 1:10 Group discussion included defenses of blaming others and willingness to take responsibility for one's recovery. Peers processed HOW TO GET STARTED IN TREATMENT assignments. This client appeared attentive and offered appropriate feedback.
--- NOTE | 2016-09-16 16:27 | NUR ---
Tech Note: Client attended speaker meeting, presented by Nutritional Services, and Relapse Prevention education. Client is currently working on Feelings Letters, Relapse Prevention and the Big Book.
--- NOTE | 2016-09-16 16:28 | NUR ---
Relapse Prevention; 1.0 hours; Client attended and actively participated in relapse prevention which focused on compulsive behaviors and relapse.
--- NOTE | 2016-09-16 23:21 | NUR ---
Education note: 1 hour lecture given by counselor on "Self Esteem"
--- NOTE | 2016-09-16 23:33 | NUR ---
Tech note: Client worked on projects for the alumni aldo for rec and attended AA meeting SEF:ADORE shrestha
--- NOTE | 2016-09-17 04:12 | NUR ---
BED NOTE: Client was in bed, motionless with eyes closed all three bed checks.
--- NOTE | 2016-09-17 10:52 | NUR ---
Tech note: Client is working on Fl's
--- NOTE | 2016-09-17 12:13 | NUR ---
AM GROUP 9:07/06.5 HR: Client and peers participated as three peers processed issues and assignments. Much of the focus became how to rebuild a healthy and realistic value system after compromised original values to such a degree in active addiction. This client was attentive as other processed but did not offer any personal feedback.
--- NOTE | 2016-09-17 13:13 | NUR ---
Education note: Client attended speaker Walt for education today.
--- NOTE | 2016-09-17 20:02 | NUR ---
SPIRITUaL EDUCATION 1 HR. Today we discussed difference between spirituality and mandaeism, and then played a spiritual challenge game where group discussed thought provoking questions on spirituality and the meaning.
--- NOTE | 2016-09-17 22:42 | NUR ---
EDUCATION NOTE: 1 HR Counselor gave a lecture on Disease Concept
--- NOTE | 2016-09-17 23:43 | NUR ---
tech note: client played Pictionary for recreation & attended onsite NA mtg. SE: All day.
--- NOTE | 2016-09-18 04:10 | NUR ---
BED NOTE: Client was in bed, motionless with eyes closed all three bed checks.
--- NOTE | 2016-09-18 11:43 | NUR ---
Group 1.5 hrs 2:20 Client shared how he wished his cousin who committed suicide could have made it into a treatment facility. Client shared how his family still had a lot of grief to deal with. Student: Chris Monreal
--- NOTE | 2016-09-18 15:33 | NUR ---
Tech Note: Client participated in Spiritual Enrichment in the morning and went for an outdoor walk in the afternoon. Client stated that he is working on, "Feelings."
--- NOTE | 2016-09-18 16:28 | NUR ---
Step ed./1 hr/ Focus was on step 7 "Humbly asked him to remove our shortcomings". Had them complete some questions on paper then discussed. This client participated.
--- NOTE | 2016-09-18 17:00 | NUR ---
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 Client feels confident that he can do a good job. He was encouraged to volunteer to chair a meeting this weekend as well. He verbalized fear but said he would do it. Client processing from MY CHANGE PLAN packet and is doing a good job on this. Client resposes are appropriate and sound realistic and confident. He is working on his FEELINGS PACKET and nearly has it completed. Session 09/22
--- NOTE | 2016-09-18 22:07 | NUR ---
EDUCATION NOTE 1HR: Recovery committee presented information on recovery
--- NOTE | 2016-09-18 22:11 | NUR ---
EDUCATION NOTE 1HR: Clients watched Yahir Mcmanus video on Behavior
--- NOTE | 2016-09-18 22:38 | NUR ---
TECH NOTE: Client helped by doing crafts for the dance for REC, and attended AA meeting.
--- NOTE | 2016-09-19 04:41 | NUR ---
Bed note: client was in bed moitionless with eyes closed and no distress at last two bed checks. Waved at tech first bed check
--- NOTE | 2016-09-19 12:50 | NUR ---
Group 1.5 Hr Ratio 1:11/Topics today were orientating a new member to group rules and goals and a couple getting started packets. Client shared how he could relate to peers sharing assignments and issues.
--- NOTE | 2016-09-19 15:46 | NUR ---
PEER REVIEWS 1.25 HRS: Clt participated in peer reviews and took a risk to give open and honest feedback to those receiving a review.
--- NOTE | 2016-09-19 16:10 | NUR ---
Tech Note: Client watched video ([employer]) and is working on Feelings Letters and the Big Book.
--- NOTE | 2016-09-19 22:16 | NUR ---
Tech Note : Client worked crafts and projects for the dance. Client watched TV.
--- NOTE | 2016-09-20 04:37 | NUR ---
Bed note: Client was in bed with eyes closed and no distress at all bed checks.
--- NOTE | 2016-09-20 17:53 | NUR ---
Tech Note: Client attended N.A. Panel and is working on Feeling pkt. and bb.
--- NOTE | 2016-09-20 19:09 | NUR ---
tech note: client attended offsite Alumni Dance.
--- NOTE | 2016-09-21 04:52 | NUR ---
BED NOTE: Client was in bed, motionless with eyes closed all three bed checks.
--- NOTE | 2016-09-21 16:41 | NUR ---
Tech Note: Client participated in Big Book Study in the morning and went for a walk in the afternoon. Client stated that he is working on, "Feelings." Cleint attended jehovah's witness.
--- NOTE | 2016-09-21 23:12 | NUR ---
tech note: Client attended AA Panel & participated in Community Clean. Client watched tv. SE: AA Panel.
--- NOTE | 2016-09-22 04:23 | NUR ---
bed note: client was in bed with eyes closed and no distress at all bed checks.
--- NOTE | 2016-09-22 10:42 | NUR ---
Tech notes: Client is working on BB
--- NOTE | 2016-09-22 12:00 | NUR ---
Peer Review 1.5 hr/ Clients all participated in giving peer review to 4 peers on what they need to work on. This client was 1 of the 4 and he heard: needs to get and use sponsor, was sheltered, has guilt and shame with family, in alf was a follower and tries to be accepted/fit in, hurt and guilt for how he hurt his family which he hasn't forgiven himself for yet, controlling of issues, likes to fit in, helpful/cane piler of others to get acceptance, hurt inside and anger bottled up, desperate to fit in and changes per the group he is with, overachiever or follower, makes self a victim/doesnt confront others he is mad with but will cuss/vent, taught not to show emotions, avoids talking about his issues/past, needs to work the steps, power/control, puts on a front, needs to learn to let go and accept, stuffs what matters to himself, tries to fit in cause doesn't accept self, needs to realize he is a good person, chamrajivon(changes to fit who he is with) and needs to just be himself, a take charge person. He did say it is hard to forgive how he let family down and does need to learn to pray again.
--- NOTE | 2016-09-22 12:54 | NUR ---
Education note: Client attended educational liam Choi on Marijuana.
--- NOTE | 2016-09-22 16:21 | NUR ---
INDIVIDUAL SESSION 1 HR: Client completed processing MY CHANGE PLAN. He has done very well with this, identifying specific plans of how he will avoid old friends, how he will keep busy, and avoid corner-cutting. Final session 09/25.
--- NOTE | 2016-09-22 23:42 | NUR ---
Tech Note: Client attended N.A.Meeting. Client also went on walk for rec. SE:N.A.Meeting
--- NOTE | 2016-09-22 23:58 | NUR ---
Education Note: 1 hour lecture on communication given by counselor.
--- NOTE | 2016-09-23 04:12 | NUR ---
Bed Note: client was in bed with eyes closed and no distress at all bed checks except first one when he was up using restroom.
--- NOTE | 2016-09-23 14:28 | NUR ---
A.MRoxanne 1.5 hr group/ratio 1:8/ Group heard a feelings letter. Discussion was on healthy verses unhealthy relationships and how addiction affects your children. This client was quiet.
--- NOTE | 2016-09-23 17:04 | NUR ---
Relapse Prevention, 07/24, 1.0 hours, Client attended and actively participated in relapse prevention which focused on completing the quiz What Do You Know About Relapse?
--- NOTE | 2016-09-23 17:36 | NUR ---
ech Note: Client is working on the Big Book.
--- NOTE | 2016-09-23 23:17 | NUR ---
Tech Note: Client took walk around park for rec. Client attended A.A.Meeting. SE: All Day
--- NOTE | 2016-09-23 23:26 | NUR ---
Education Note: Client attended a one hour session with [facility] on HIV/AIDS/STD's for education.
--- NOTE | 2016-09-24 04:48 | NUR ---
Bed Note: client was in bed with eyes closed and no distress at all bed checks.
--- NOTE | 2016-09-24 10:29 | NUR ---
Tech notes: Client is working on BB
--- NOTE | 2016-09-24 12:55 | NUR ---
Group 1.5 hrs 1:10 Client participated in orientating a new peer on the purpose of group and guidelines. Client also shared information about a traumatic incident and how it continues to affect other family members. Student: Chris Monreal
--- NOTE | 2016-09-24 15:27 | NUR ---
SPIRITUAL EDUCATION 1 hr. Today we oriented newcomers, discussed Starfish story then reached out to newcomers writing letters of encouragment and welcome, and using word art to make Big Book Bookmarks as welcoming gift.
--- NOTE | 2016-09-24 19:12 | NUR ---
Education: 1 Hour. Client attended Step 2 & Step 3 lecture given by staff.
--- NOTE | 2016-09-24 23:26 | NUR ---
Tech note : Client went for a walk around the park for rec and attended an onsite NA meeting. SE: CYNDIE
--- NOTE | 2016-09-25 05:15 | NUR ---
tech note: client was motionless in no distress at all bed checks.
--- NOTE | 2016-09-25 10:37 | NUR ---
FINAL SESSION 1 HR: Client completed processing his RELAPSE PREVENTION packet. CONTINUED CARE FORM was completed and medallion presented. Client has some fear but is excited to start a new chapter in his life in [place]. He will discharge as soon as his mom gets here. Client will go home to [facility]. Mom will take him to [place] tomorrow morning.
--- NOTE | 2016-09-25 10:57 | NUR ---
DISCHARGE NOTE Client completed treatment and left the facility with his mom, taking all personal belongings with him. Discharge instructions were reviewed and a signed copy provided to the client.
--- NOTE | 2016-11-03 11:06 | DS ---
ADMIT: 08/28/2016 RM/LOC: [facility] MR#: [id number] [address] [facility] [address] [place] [id number] [address] [place] [id number] General Discharge Summary SEX: M AGE: 41 : 1975 ADMISSION DATE: 08/28/2016 DISCHARGE DATE: 09/25/2016 ADMITTING DIAGNOSIS: See H and P. FINAL DIAGNOSES: 1. Methamphetamine/stimulant use disorder, severe. 2. Tobacco use disorder. 3. Hyperlipidemia. COMPLICATIONS: None. OPERATIONS: None. CLINICAL HISTORY: The patient is a 41-year-old white male, who was re- admitted to the residential care program for treatment of his methamphetamine/stimulant use disorder. The patient comes to treatment after having spent two months in shelter. For details of his pattern of usage and problems associated with his long-term substance abuse and chemical dependency, please see the clinical history portion of the dictated history and physical. Please also see dictated history and physical for pertinent physical exam findings. LABORATORY AND X-RAY SUMMARY FROM THIS ADMISSION: None indicated, none performed. HOSPITAL COURSE: The patient was admitted and assigned to his primary counselor, John Matos, [facility]. The patient remained in treatment from 08/28/2016 until 09/25/2016. While in treatment, he participated in individual therapy and group therapy. He was also given the educational series on substance abuse and worked on many of these assignments while in treatment. While in treatment, his family did attend family sessions, they were very supportive but also were felt to have enabled the patient in the past. The patient and his family attended family education and family group sessions. While in treatment, he was accepting of his substance abuse problem. He completed step 1 of AA during this level of care. While in treatment, he had no significant medical issues. He was able to complete all of his treatment objectives and goals. He gained a better understanding of his powerlessness over drugs and alcohol. He gained a better understanding of the disease concept of addiction. As noted, he completed his residential treatment goals. He did work on identifying obstacles to his sobriety and worked on his own personal relapse prevention plan. It was recommended that he be dismissed to a [facility]. He was going to be dismissed to the [facility] in [place] on 09/26/2016. He was going to reside at the [facility] for a minimum of 6 months until discharge from there with staff ADMIT: 08/28/2016 RM/LOC: [facility] MR#: [id number] [address] [place] [id number] [facility] [address] [address] General Discharge Summary SEX: M AGE: 41 : 1975 approval. He will attend 5 to 7 AA or NA meetings per week and maintain contact with a sponsor. He is to reside at the [facility] until dismissed with staff approval. CONDITION AT DISCHARGE: Stable and improved. PROGNOSIS: [place] to be good if he follows through on the extended [facility] stay. DISMISSAL MEDICATIONS: 1. Zocor 80 mg at bedtime. 2. Melatonin 3 mg at suppertime and 6 mg at bedtime. Neel Stephen MD/ anabella JOB #: [id number] CC: Neel Stephen MD, Attending Physician FAMILY PHYSICIAN, Family Physician
== END 2016-09-25 11:00 | disposition home or self-care (01) | DRG 895 ==
LOC: ADTC 09:37
PROVIDERS: ADMIT Family Medicine
PROC: HZ43ZZZ Group Counseling for Substance Abuse Treatment, 12-Step (ICD-10-PCS; principal; 2016-08-28)
PROC: HZ63ZZZ Family Counseling for Substance Abuse Treatment (ICD-10-PCS; principal; 2016-08-28)
PROC: HZ34ZZZ Individual Counseling for Substance Abuse Treatment, Interpersonal (ICD-10-PCS; principal; 2016-08-28)
PROC: 3E0234Z Introduction of Serum, Toxoid and Vaccine into Muscle, Percutaneous Approach (ICD-10-PCS; 2016-08-29)
DX: F15.20 Other stimulant dependence, uncomplicated (principal); E78.5 Hyperlipidemia, unspecified; F17.210 Nicotine dependence, cigarettes, uncomplicated; F17.220 Nicotine dependence, chewing tobacco, uncomplicated; Z63.72 Alcoholism and drug addiction in family; K05.10 Chronic gingivitis, plaque induced; K05.6 Periodontal disease, unspecified; Z65.2 Problems related to release from prison; Z23 Encounter for immunization